=== PATIENT | female | born 1955 | race American Indian/Alaskan Native ===

== ENCOUNTER 2017-01-26 11:56 | Emergency (ER) | payer MEDICARE ==
--- NOTE | 2017-01-26 13:21 | Emergency Department Report ---
Chief Complaint: Fall Stated Complaint: FALL Time Seen by Provider: 01/26/17 13:09 - HPI History of Present Illness: 61-year-old who walks with a cane presented to the ED stating she fell from even ground 2 days ago. Patient states she fell and landed on her butt/back. Patient states she was fine in the next day she had problems getting out of bed or getting into the top. She denies fevers/chills/nausea/vomiting/abdominal pain - ROS Review of Systems: As noted in HPI - Exam Vital Signs: Vital Signs 01/26/17 12:24 Temperature 98.4 F Pulse Rate 70 Respiratory 18 Rate Blood Pressure 154/70 O2 Sat by Pulse 99 Oximetry Physical Exam: GENERAL: Alert and oriented x3, no apparent distress, HEAD: Head is normocephalic and a-traumatic. HEART: S1, S2 present, regular rate and rhythm without murmur, no rubs, no gallops. Non tender to palpation Back: Lumbar spine tenderness MSE screening note: Focused history and physical exam performed. Due to findings the following was ordered: ED Medical Decision Making - Medical Decision Making CT of the lumbar spine ordered. ED Disposition for MSE Condition: Stable
--- NOTE | 2017-01-26 14:19 | Cat Scan Report ---
CT SCAN OF THE LUMBAR SPINE: HISTORY: Back pain after fall. TECHNIQUE: Contiguous 1.25 mm axial images of the cervical spine were obtained. Sagittal and coronal reformatted images. FINDINGS: Osteopenia is evident. There is normal alignment of the lumbar spine. The body, pedicles and posterior ligaments are intact. No evidence of fracture or subluxation is seen. The spinal canal appears normal. The prevertebral soft tissues appear normal. Mild facet arthropathy is identified at L4-5 and L5-S1. IMPRESSION: Osteopenia. Mild degenerative changes as described. No acute injury is appreciated.
--- NOTE | 2017-01-26 18:13 | Cat Scan Report ---
FINAL REPORT PROCEDURE: CT HEAD/BRAIN WO CON TECHNIQUE: Computerized tomography of the head was performed without contrast material. HISTORY: Trauma. Fell. Pain. Currently on anticoagulants. COMPARISON: No prior studies are available for comparison. FINDINGS: Brain: There is no evidence of intracranial hemorrhage. No parenchymal hemorrhage is seen. No mass lesions or mass effect is identified. No abnormal extra-axial fluid collections or masses are seen. An old well-defined lacunar infarct is seen in the posterior lateral inferior aspect of the right basal ganglia. There is also an old lacunar infarct in the superior lateral aspect of the right caudate nucleus. There is nonspecific mineralization of the left basal ganglia. There is some decreased density seen in the periventricular white matter without mass effect. This is fairly symmetric and does not exhibit any mass effect consistent with gliosis probably on the basis of microvascular disease or white matter changes of aging. Ventricles: The ventricles, sulcal pattern and fissures are prominent consistent with atrophy. Bones: No evidence of acute fracture. There appears to be non fusion of the posterior ring of C1, normal variant. Paranasal sinuses: clear Mastoid air cells: clear IMPRESSION: There is no evidence of intracranial hemorrhage or skull fracture. Old lacunar infarcts as described. There is also evidence of mild atrophy and gliosis. No other abnormalities are seen.
--- NOTE | 2017-01-26 18:17 | Cat Scan Report ---
FINAL REPORT PROCEDURE: CT CERVICAL SPINE WO CON TECHNIQUE: Computerized tomography of the cervical spine was performed from the skull base to T1 without contrast material. HISTORY: Trauma. Fell. Pain. COMPARISON: No prior studies are available for comparison. FINDINGS: No fracture or subluxation is seen. The prevertebral soft tissues appear normal. There is non fusion of the posterior ring of C1, normal variant. C1-2: No significant abnormality. C2-3: No significant abnormality. C3-4: No significant abnormality. C4-5: No significant abnormality. C5-6: Anterior osteophytic spurring is visualized. No focal disc herniation or spinal stenosis is seen.. C6-7: Anterior osteophytic spurring is visualized. The disc space is mildly narrowed. Mild diffuse posterior disc bulge is present without focal disc herniation or spinal stenosis.. C7-T1: No significant abnormality. Other: Calcifications are seen in the lowry of the carotid arteries indicating atherosclerotic disease.. IMPRESSION: No evidence of fracture or subluxation. Mild degenerative disc disease C5-C6 and C6-C7 as described. Non fusion posterior ring of C1, normal variant. Atherosclerosis carotid arteries..
[2017-01-26 18:43] LABS: BUN/Creatinine Ratio 14.11; Calcium 9.4 mg/dL (8.4-10.2); Chloride 100.9 mmol/L (98-107); Potassium 4.5 mmol/L (3.6-5.0)
[2017-01-26] MEDS ORDERED: TORADOL IM ONE (19:00)
--- NOTE | 2017-01-26 19:05 | Emergency Department Report ---
ED Fall HPI - General Chief Complaint: Fall Stated Complaint: FALL Time Seen by Provider: 01/26/17 13:09 Source: patient Mode of arrival: Wheelchair - History of Present Illness Complaint: fall -: Sudden, During the night Fall From: standing Place Fall Occurred: home Loss of Consciousness: none Prolonged Down Time?: no Symptoms Prior to Fall: none Location: head, neck, back Severity: mild Severity scale (0 -10): 2 Quality: sharp, dull Associated Symptoms: neck pain. denies: headache, numbness, weakness, chest paint, shortness of breath, abdominal pain, hematuria, lightheaded, vertigo, confusion - Related Data Home Medications Medication Instructions Recorded Confirmed Last Taken Escitalopram [Lexapro Oral Liqd] 10 mg PO QDAY 08/04/13 10/14/13 10/13/13 Exenatide [Byetta] 2.5 mcg SQ BID 08/04/13 10/14/13 10/13/13 Furosemide [Lasix] 40 mg PO DAILY 08/04/13 10/14/13 10/13/13 Gabapentin [Neurontin] 800 mg PO Q8H 08/04/13 10/14/13 10/13/13 Hydroxyzine HCl [hydrOXYzine] 50 mg PO TID 08/04/13 10/14/13 10/13/13 Insulin NPH Human Isophane 135 unit SQ BID 08/04/13 10/14/13 10/13/13 [Humulin N] Losartan [Cozaar] 25 mg PO QDAY 08/04/13 10/14/13 10/13/13 Potassium Chloride [K-Dur] 10 meq PO QDAY 08/04/13 10/14/13 10/13/13 Warfarin Sodium [Coumadin] 6 mg PO 4XW 08/04/13 10/14/13 10/13/13 Warfarin [Coumadin] 8 mg PO 3XW 08/04/13 10/14/13 10/12/13 Previous Rx's Medication Instructions Recorded Last Taken Type Fluconazole [Diflucan] 150 mg PO QDAY PRN #3 tablet 08/04/13 10/13/13 Rx Levofloxacin [Levaquin TAB] 750 mg PO QDAY #7 tablet 08/04/13 10/13/13 Rx HYDROcodone/APAP 5-325 [[place] 1 - 2 each PO Q4-6H PRN #15 tablet 01/26/17 Unknown Rx 5-325 mg TAB] Allergies Allergy/AdvReac Type Severity Reaction Status Date / Time amlodipine Allergy Swelling Verified 08/04/13 09:57 atenolol Allergy Rash Verified 08/04/13 09:57 cephalexin monohydrate Allergy Rash Verified 08/04/13 09:57 [From Keflex] hydrochlorothiazide Allergy Swelling Verified 08/04/13 09:57 iodine Allergy Rash Verified 08/04/13 09:57 lansoprazole Allergy Swelling Verified 08/04/13 09:57 lisinopril Allergy Unknown Verified 08/04/13 09:57 metoclopramide HCl Allergy Swelling Verified 08/04/13 09:57 [From Reglan] Penicillins Allergy Rash Verified 08/04/13 09:57 promethazine HCl Allergy Swelling Verified 08/04/13 09:57 [From Phenergan] acetaminophen AdvReac Nausea Verified 08/04/13 09:57 [From Darvocet-N 100] clonidine AdvReac Dizziness Verified 08/04/13 09:57 codeine AdvReac Nausea Verified 08/04/13 09:57 ezetimibe [From Zetia] AdvReac Unknown Verified 08/04/13 09:57 naproxen AdvReac Unknown Verified 08/04/13 09:57 Niacin Preparations AdvReac Unknown Verified 08/04/13 09:57 phenytoin sodium AdvReac Unknown Verified 08/04/13 09:57 [From Dilantin] phenytoin sodium extended AdvReac Unknown Verified 08/04/13 09:57 [From Dilantin] pravastatin AdvReac Unknown Verified 08/04/13 09:57 propoxyphene napsylate AdvReac Nausea Verified 08/04/13 09:57 [From Darvocet-N 100] quetiapine fumarate AdvReac Dizziness Verified 08/04/13 09:57 [From Seroquel] sulfamethoxazole AdvReac Itching Verified 08/04/13 09:57 [From Bactrim] tramadol AdvReac Unknown Verified 08/04/13 09:57 trimethoprim [From Bactrim] AdvReac Itching Verified 08/04/13 09:57 ED Review of Systems ROS: Stated complaint: FALL Other details as noted in HPI Comment: All other systems reviewed and negative ED Past Medical Hx - Past Medical History Previous Medical History?: Yes Hx CVA: Yes (TIA October 2012) Hx Diabetes: Yes Hx Renal Disease: Yes Additional medical history: atrial fib, 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 - Surgical History Past Surgical History?: Yes Hx Cholecystectomy: Yes Additional Surgical History: gall stone removed 1992 - Social History Smoking Status: Former Smoker Substance Use Type: Marijuana, Prescribed - Medications Home Medications: Home Medications Medication Instructions Recorded Confirmed Last Taken Type Escitalopram [Lexapro Oral Liqd] 10 mg PO QDAY 08/04/13 10/14/13 10/13/13 History Exenatide [Byetta] 2.5 mcg SQ BID 08/04/13 10/14/13 10/13/13 History Fluconazole [Diflucan] 150 mg PO QDAY PRN #3 tablet 08/04/13 10/14/13 10/13/13 Rx Furosemide [Lasix] 40 mg PO DAILY 08/04/13 10/14/13 10/13/13 History Gabapentin [Neurontin] 800 mg PO Q8H 08/04/13 10/14/13 10/13/13 History Hydroxyzine HCl [hydrOXYzine] 50 mg PO TID 08/04/13 10/14/13 10/13/13 History Insulin NPH Human Isophane 135 unit SQ BID 08/04/13 10/14/13 10/13/13 History [Humulin N] Levofloxacin [Levaquin TAB] 750 mg PO QDAY #7 tablet 08/04/13 10/14/13 10/13/13 Rx Losartan [Cozaar] 25 mg PO QDAY 08/04/13 10/14/13 10/13/13 History Potassium Chloride [K-Dur] 10 meq PO QDAY 08/04/13 10/14/13 10/13/13 History Warfarin Sodium [Coumadin] 6 mg PO 4XW 08/04/13 10/14/13 10/13/13 History Warfarin [Coumadin] 8 mg PO 3XW 08/04/13 10/14/13 10/12/13 History HYDROcodone/APAP 5-325 [[place] 1 - 2 each PO Q4-6H PRN #15 tablet 01/26/17 Unknown Rx 5-325 mg TAB] ED Physical Exam - General Limitations: Physical Limitation General appearance: alert, in no apparent distress - Head Head exam: Present: atraumatic, normocephalic - Eye Eye exam: Present: normal appearance, PERRL, EOMI - ENT ENT exam: Present: normal exam, normal orophraynx, mucous membranes moist - Neck Neck exam: Present: normal inspection - Respiratory Respiratory exam: Present: normal lung sounds bilaterally. Absent: respiratory distress - Cardiovascular Cardiovascular Exam: Present: regular rate, normal rhythm. Absent: systolic murmur, diastolic murmur, rubs, gallop - GI/Abdominal GI/Abdominal exam: Present: soft, normal bowel sounds - Extremities Exam Extremities exam: Present: normal inspection - Back Exam Back exam: Present: normal inspection, muscle spasm, paraspinal tenderness. Absent: CVA tenderness (R), CVA tenderness (L) - Neurological Exam Neurological exam: Present: alert, oriented X3 - Psychiatric Psychiatric exam: Present: normal affect, normal mood - Skin Skin exam: Present: warm, dry, intact, normal color. Absent: rash ED Course Vital Signs 01/26/17 01/26/17 01/26/17 12:24 18:42 18:43 Temperature 98.4 F 98.1 F Pulse Rate 70 65 Respiratory 18 18 18 Rate Blood Pressure 154/70 Blood Pressure 167/88 [Left] O2 Sat by Pulse 99 100 100 Oximetry ED Medical Decision Making - Lab Data Result diagrams: 01/26/17 18:10 - Radiology Data Radiology results: report reviewed, image reviewed - Medical Decision Making patient doing well, work up so far negative. head and cspine ct and lumbar ct with no fractures, she is able to ambulate here in the ER, will dc and follow up Critical care attestation.: If time is entered above; I have spent that time in minutes in the direct care of this critically ill patient, excluding procedure time. ED Disposition Clinical Impression: Lumbar strain, Fall Disposition: DC-01 TO HOME OR SELFCARE Is pt being admited?: No Does the pt Need Aspirin: No Condition: Good Instructions: Muscle Strain (ED) Prescriptions: HYDROcodone/APAP 5-325 [[place] 5-325 mg TAB] 1 - 2 each PO Q4-6H PRN #15 tablet PRN Reason: Pain Time of Disposition: 19:05
[2017-01-26 19:15] LABS: Basophils % (Auto) 0.9 % (0.0-1.8); Hematocrit 32.6 % (30.3-42.9); Hemoglobin 10.6 gm/dl (10.1-14.3); Mean Corpuscular HGB Conc 33 % (30-34); Mean Corpuscular Hemoglobin 27 pg (28-32); Mean Corpuscular Volume 82 fl (79-97); Platelet Count 174 K/mm3 (140-440); Red Blood Count 3.97 M/mm3 (3.65-5.03); Red Cell Distribution Width 16.1 % (13.2-15.2)
[2017-01-26 19:16] LABS: INR 1.38 (0.87-1.13)
[2017-01-26 19:17] LABS: Partial Thromboplastin Time 33.9 Sec. (24.2-36.6)
[2017-01-26 19:35] VITALS: BP 169/82
--- NOTE | 2017-01-27 07:22 | XRay Report ---
LEFT HIP, 2 views: History: Left hip pain after fall. The bony architecture is intact without evidence of fracture or dislocation. No significant soft tissue abnormality is seen. IMPRESSION: Unremarkable left hip.
== END 2017-01-26 20:12 | disposition home or self-care (01) ==
LOC: ED 11:56
DX: S39.012A Strain of muscle, fascia and tendon of lower back, initial encounter (principal); E11.9 Type 2 diabetes mellitus without complications; F17.200 Nicotine dependence, unspecified, uncomplicated; F12.10 Cannabis abuse, uncomplicated; Z86.73 Personal history of transient ischemic attack (TIA), and cerebral infarction without residual deficits; Z90.49 Acquired absence of other specified parts of digestive tract; Z88.2 Allergy status to sulfonamides; Z88.6 Allergy status to analgesic agent; Z88.8 Allergy status to other drugs, medicaments and biological substances; W18.39XA Other fall on same level, initial encounter; Y93.89 Activity, other specified; Y99.8 Other external cause status; Y92.89 Other specified places as the place of occurrence of the external cause
CPT/HCPCS: 36415; 70450; 72125; 72131; 73502; 80048; 82962; 85025; 85610; 85730; 96372; 99284; J1885

== ENCOUNTER 2017-12-05 11:15 | Emergency (ER) | payer MEDICARE ==
[2017-12-05 12:20] LABS: Hematocrit 38.1 % (30.3-42.9); Hemoglobin 12.9 gm/dl (10.1-14.3); Mean Corpuscular HGB Conc 34 % (30-34); Mean Corpuscular Hemoglobin 27 pg (28-32); Mean Corpuscular Volume 81 fl (79-97); Platelet Count 216 K/mm3 (140-440); Red Blood Count 4.72 M/mm3 (3.65-5.03); Red Cell Distribution Width 15.6 % (13.2-15.2)
[2017-12-05 12:29] LABS: Bacteria,Urine 1+ /HPF (Negative); Bilirubin,Urine NEG (Negative); Blood,Urine NEG (Negative); Color,Urine Yellow (Yellow); Mucus,Urine FEW /HPF; Urobilinogen,Urine < 2.0 mg/dL (<2.0)
[2017-12-05 12:50] LABS: Calcium 9.6 mg/dL (8.4-10.2)
[2017-12-05] MEDS ORDERED: PERCOCET 5/325 PO ONE (13:28)
[2017-12-05] MEDS ORDERED: LYRICA PO ONE (13:28)
[2017-12-05] MEDS ORDERED: MACROBID PO ONE (13:28)
[2017-12-05] MEDS ORDERED: APRESOLINE PO ONE (13:29)
--- NOTE | 2017-12-05 13:56 | Emergency Department Report ---
ED Back Pain/Injury HPI - General Chief Complaint: Pain General Stated Complaint: PAIN Time Seen by Provider: 12/05/17 13:19 Source: patient, EMS Limitations: No Limitations - History of Present Illness Initial Comments: 62-year-old female with a past medical history CVA, TIA, diabetes, depression, atrial fibrillation, renal insufficiency, and chronic back pain presents to the hospital complaining of exacerbation of back pain and diabetic neuropathy since running out of her Lyrica 2 days ago. Patient complains of pain to bilateral "kidney area". Pain is constant and exacerbated by movement and palpation. Patient also complains of paresthesias to hands and feet secondary to neuropathy that is moderate to severe as well. Patient has been unable to sleep secondary to pain. Patient presents with elevated blood pressure and into for her second of her 3 times a day hydralazine 50 mg dose. Patient denies dysuria or frequency bit does complain of some mild vaginal itching. Patient denies urinary incontinence/retention or leg weakness. No fever. - Related Data Home Medications Medication Instructions Recorded Confirmed Last Taken Escitalopram [Lexapro Oral Liqd] 10 mg PO QDAY 08/04/13 10/14/13 10/13/13 Exenatide [Byetta] 2.5 mcg SQ BID 08/04/13 10/14/13 10/13/13 Furosemide [Lasix] 40 mg PO DAILY 08/04/13 10/14/13 10/13/13 Gabapentin [Neurontin] 800 mg PO Q8H 08/04/13 10/14/13 10/13/13 Hydroxyzine HCl [hydrOXYzine] 50 mg PO TID 08/04/13 10/14/13 10/13/13 Insulin NPH Human Isophane 135 unit SQ BID 08/04/13 10/14/13 10/13/13 [Humulin N] Losartan [Cozaar] 25 mg PO QDAY 08/04/13 10/14/13 10/13/13 Potassium Chloride [K-Dur] 10 meq PO QDAY 08/04/13 10/14/13 10/13/13 Warfarin Sodium [Coumadin] 6 mg PO 4XW 08/04/13 10/14/13 10/13/13 Warfarin [Coumadin] 8 mg PO 3XW 08/04/13 10/14/13 10/12/13 Previous Rx's Medication Instructions Recorded Last Taken Type Fluconazole [Diflucan] 150 mg PO QDAY PRN #3 tablet 08/04/13 10/13/13 Rx Levofloxacin [Levaquin TAB] 750 mg PO QDAY #7 tablet 08/04/13 10/13/13 Rx HYDROcodone/APAP 5-325 [[place] 1 - 2 each PO Q4-6H PRN #15 tablet 01/26/17 Unknown Rx 5-325 mg TAB] Fluconazole [Diflucan TAB] 150 mg PO ONCE #1 tablet 12/05/17 Unknown Rx Nitrofurantoin [place]/M-Cryst 100 mg PO Q12HR #14 capsule 12/05/17 Unknown Rx [Macrobid CAP] Oxycodone HCl/Acetaminophen 1 each PO Q6HR PRN #14 tablet 12/05/17 Unknown Rx [Percocet 7.5/325 mg] Pregabalin [Lyrica] 150 mg PO BID #30 capsule 12/05/17 Unknown Rx Allergies Allergy/AdvReac Type Severity Reaction Status Date / Time amlodipine Allergy Swelling Verified 08/04/13 09:57 atenolol Allergy Rash Verified 08/04/13 09:57 cephalexin monohydrate Allergy Rash Verified 08/04/13 09:57 [From Keflex] hydrochlorothiazide Allergy Swelling Verified 08/04/13 09:57 iodine Allergy Rash Verified 08/04/13 09:57 lansoprazole Allergy Swelling Verified 08/04/13 09:57 lisinopril Allergy Unknown Verified 08/04/13 09:57 metoclopramide HCl Allergy Swelling Verified 08/04/13 09:57 [From Reglan] Penicillins Allergy Rash Verified 08/04/13 09:57 promethazine HCl Allergy Swelling Verified 08/04/13 09:57 [From Phenergan] acetaminophen AdvReac Nausea Verified 08/04/13 09:57 [From Darvocet-N 100] clonidine AdvReac Dizziness Verified 08/04/13 09:57 codeine AdvReac Nausea Verified 08/04/13 09:57 ezetimibe [From Zetia] AdvReac Unknown Verified 08/04/13 09:57 naproxen AdvReac Unknown Verified 08/04/13 09:57 Niacin Preparations AdvReac Unknown Verified 08/04/13 09:57 phenytoin sodium AdvReac Unknown Verified 08/04/13 09:57 [From Dilantin] phenytoin sodium extended AdvReac Unknown Verified 08/04/13 09:57 [From Dilantin] pravastatin AdvReac Unknown Verified 08/04/13 09:57 propoxyphene napsylate AdvReac Nausea Verified 08/04/13 09:57 [From Darvocet-N 100] quetiapine fumarate AdvReac Dizziness Verified 08/04/13 09:57 [From Seroquel] sulfamethoxazole AdvReac Itching Verified 08/04/13 09:57 [From Bactrim] tramadol AdvReac Unknown Verified 08/04/13 09:57 trimethoprim [From Bactrim] AdvReac Itching Verified 08/04/13 09:57 ED Review of Systems ROS: Stated complaint: PAIN Other details as noted in HPI Comment: All other systems reviewed and negative ED Past Medical Hx - Past Medical History Hx CVA: Yes (TIA October 2012) Hx Diabetes: Yes Hx Renal Disease: Yes Hx Psychiatric Treatment: Yes (depression) Additional medical history: atrial fib, 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,chronic back pain - Surgical History Hx Cholecystectomy: Yes Additional Surgical History: gall stone removed 1992 - Social History Smoking Status: Never Smoker Substance Use Type: None - Medications Home Medications: Home Medications Medication Instructions Recorded Confirmed Last Taken Type Escitalopram [Lexapro Oral Liqd] 10 mg PO QDAY 08/04/13 10/14/13 10/13/13 History Exenatide [Byetta] 2.5 mcg SQ BID 08/04/13 10/14/13 10/13/13 History Fluconazole [Diflucan] 150 mg PO QDAY PRN #3 tablet 08/04/13 10/14/13 10/13/13 Rx Furosemide [Lasix] 40 mg PO DAILY 08/04/13 10/14/13 10/13/13 History Gabapentin [Neurontin] 800 mg PO Q8H 08/04/13 10/14/13 10/13/13 History Hydroxyzine HCl [hydrOXYzine] 50 mg PO TID 08/04/13 10/14/13 10/13/13 History Insulin NPH Human Isophane 135 unit SQ BID 08/04/13 10/14/13 10/13/13 History [Humulin N] Levofloxacin [Levaquin TAB] 750 mg PO QDAY #7 tablet 08/04/13 10/14/13 10/13/13 Rx Losartan [Cozaar] 25 mg PO QDAY 08/04/13 10/14/13 10/13/13 History Potassium Chloride [K-Dur] 10 meq PO QDAY 08/04/13 10/14/13 10/13/13 History Warfarin Sodium [Coumadin] 6 mg PO 4XW 08/04/13 10/14/13 10/13/13 History Warfarin [Coumadin] 8 mg PO 3XW 08/04/13 10/14/13 10/12/13 History HYDROcodone/APAP 5-325 [[place] 1 - 2 each PO Q4-6H PRN #15 tablet 01/26/17 Unknown Rx 5-325 mg TAB] Fluconazole [Diflucan TAB] 150 mg PO ONCE #1 tablet 12/05/17 Unknown Rx Nitrofurantoin [place]/M-Cryst 100 mg PO Q12HR #14 capsule 12/05/17 Unknown Rx [Macrobid CAP] Oxycodone HCl/Acetaminophen 1 each PO Q6HR PRN #14 tablet 12/05/17 Unknown Rx [Percocet 7.5/325 mg] Pregabalin [Lyrica] 150 mg PO BID #30 capsule 12/05/17 Unknown Rx ED Physical Exam - General Limitations: No Limitations - Other Other exam information: General: No limitations, patient is alert in no acute distress Head exam: Atraumatic, normocephalic Eyes exam: Normal appearance ENT: Moist mucous membrane, normal oropharynx Neck exam: Normal inspection, full range of motion, no meningismus nontender Respiratory exam: Clear to auscultation bilateral, no wheezes, rales, crackles Cardiovascular: Normal rate and rhythm, normal heart sounds Abdomen: Soft, nondistended, and nontender, with normal bowel sounds, no rebound, or guarding Extremity: Full range of motion normal inspection no deformity Back: Normal Inspection, full range of motion, bilateral flank muscle tenderness. Neurologic: Alert, oriented x3, cranial nerves intact, no motor or sensory deficit Psychiatric: normal affect, normal mood Skin: Warm, dry, intact ED Course Vital Signs 12/05/17 12/05/17 12/05/17 11:36 13:54 13:55 Temperature 98.7 F Pulse Rate 75 76 Respiratory 18 16 Rate Blood Pressure 176/114 176/114 Blood Pressure [Left] O2 Sat by Pulse 100 Oximetry 12/05/17 15:37 Temperature 98.7 F Pulse Rate 66 Respiratory 18 Rate Blood Pressure Blood Pressure 172/62 [Left] O2 Sat by Pulse 99 Oximetry ED Medical Decision Making - Lab Data Result diagrams: 12/05/17 11:47 12/05/17 11:47 Lab Results 12/05/17 12/05/17 12/05/17 Range/Units 11:47 11:47 12:04 WBC 6.1 (4.5-11.0) K/mm3 RBC 4.72 (3.65-5.03) M/mm3 Hgb 12.9 (10.1-14.3) gm/dl Hct 38.1 (30.3-42.9) % MCV 81 (79-97) fl MCH 27 L (28-32) pg MCHC 34 (30-34) % RDW 15.6 H (13.2-15.2) % Plt Count 216 (140-440) K/mm3 Sodium 138 (137-145) mmol/L Potassium 3.6 (3.6-5.0) mmol/L Chloride 100.4 (98-107) mmol/L Carbon Dioxide 22 (22-30) mmol/L Anion Gap 19 mmol/L BUN 21 H (7-17) mg/dL Creatinine 1.5 H (0.7-1.2) mg/dL Estimated GFR 43 ml/min BUN/Creatinine Ratio 14 % Glucose 211 H (65-100) mg/dL Calcium 9.6 (8.4-10.2) mg/dL Urine Color Yellow (Yellow) Urine Turbidity Clear (Clear) Urine pH 5.0 (5.0-7.0) Ur Specific [place] 1.020 (1.003-1.030) Urine Protein 100 mg/dl (Negative) mg/dL Urine Glucose (UA) Neg (Negative) mg/dL Urine Ketones Neg (Negative) mg/dL Urine Blood Neg (Negative) Urine Nitrite Neg (Negative) Urine Bilirubin Neg (Negative) Urine Urobilinogen < 2.0 (<2.0) mg/dL Ur Leukocyte Esterase Lg (Negative) Urine WBC (Auto) 32.0 H (0.0-6.0) /HPF Urine RBC (Auto) 5.0 (0.0-6.0) /HPF U Epithel Cells (Auto) 19.0 H (0-13.0) /HPF Urine Bacteria (Auto) 1+ (Negative) /HPF Urine Mucus Few /HPF Urine Yeast (Budding) Few /HPF - Medical Decision Making Patient feeling better after Percocet and Lyrica. BP improved with her typical hydralazine 50 mg dose. Patient given her first dose of Macrobid for UTI and will be prescribed Diflucan in to cover for yeast - Differential Diagnosis chronic back pain, neuropathy, uti, muscle strain Critical Care Time: No Critical care attestation.: If time is entered above; I have spent that time in minutes in the direct care of this critically ill patient, excluding procedure time. ED Disposition Clinical Impression: Acute exacerbation of chronic low back pain, UTI (urinary tract infection), Chronic renal insufficiency, Yeast vaginitis, Diabetic neuropathy, Medication refill, HTN (hypertension) Disposition: TO HOME OR SELFCARE Is pt being admited?: No Does the pt Need Aspirin: No Condition: Stable Instructions: Chronic Back Pain (ED), Urinary Tract Infection in Women (ED), Vulvovaginal Candidiasis (ED), Diabetic Neuropathy (ED), Hypertension (ED) Additional Instructions: Take the medication as prescribed. Return if symptoms worsen as indicated by your discharge instructions. Follow-up with your primary care physician for further management Prescriptions: Fluconazole [Diflucan TAB] 150 mg PO ONCE #1 tablet Nitrofurantoin [place]/M-Cryst [Macrobid CAP] 100 mg PO Q12HR #14 capsule Oxycodone HCl/Acetaminophen [Percocet 7.5/325 mg] 1 each PO Q6HR PRN #14 tablet PRN Reason: Pain Pregabalin [Lyrica] 150 mg PO BID #30 capsule Referrals: PRIMARY CARE, [Primary Care Provider] - 3-5 Days Time of Disposition: 15:47
[2017-12-05 15:38] VITALS: BP 172/62
== END 2017-12-05 15:58 | disposition home or self-care (01) ==
LOC: ED 11:15
DX: N39.0 Urinary tract infection, site not specified (principal); N28.9 Disorder of kidney and ureter, unspecified; B37.3 Candidiasis of vulva and vagina; I10 Essential (primary) hypertension; E11.40 Type 2 diabetes mellitus with diabetic neuropathy, unspecified; Z88.6 Allergy status to analgesic agent; Z88.0 Allergy status to penicillin; Z88.8 Allergy status to other drugs, medicaments and biological substances
CPT/HCPCS: 36415; 80048; 81001; 85027; 87086; 99284